=== PATIENT | female | born 1945 | race Caucasian/White ===

== ENCOUNTER 2017-02-07 10:54 | Day surgery (SDC) | payer MEDICARE, OTHER ==
[~2017-02-07] VITALS: Ht 167.6 cm; Wt 97.1 kg
--- NOTE | ~2017-02-07 | EGD ---
EGD REPORT [facility] [address] [place] [address] NAME: RONA ARREDONDO : [birth year] STATUS : REG [facility]#: [id number] AGE: 71 ADM/REG DATE : 02/07/17 MR#: [id number] REPORT SERV DATE: 02/07/17 DICTATED BY: DIRK CAMACHO DATE: 02/07/17 REPORT STATUS : Draft TRANSCRIBED BY: [facility] DATE: 02/07/17 Endoscopy Center Patient Name: Rona Arrednodo Date of : 1945 Attending MD: DIRK CAMACHO MD Procedure Date No Time: 02/07/2017 Procedure: Colonoscopy Indications: High risk colon cancer surveillance: Personal history of colonic polyps Referring MD: ISAEL ACUÑA Medicines: as per anesthesia Complications: No immediate complications. Procedure: Pre-Anesthesia Assessment: - ASA Grade Assessment: III - A patient with severe systemic disease. After I obtained informed consent, the scope was passed under direct vision. Throughout the procedure, the patient's blood pressure, pulse, and oxygen saturations were monitored continuously. The PCF [id number] was introduced through the anus and advanced to the cecum, identified by appendiceal orifice and ileocecal valve. The colonoscopy was somewhat difficult due to significant looping and a tortuous colon. The patient tolerated the procedure. The quality of the bowel preparation was fair. Findings: The perianal and digital rectal examinations were normal. Many small and large-mouthed diverticula were found in the sigmoid colon and in the descending colon. Internal hemorrhoids were found during endoscopy and were mild. Impression: - Diverticulosis in the sigmoid colon and in the descending colon. - Internal hemorrhoids. Recommendation: - Repeat colonoscopy in 5 years for surveillance. Procedure Code(s): --- Professional --- 76712, Colonoscopy, flexible, proximal to splenic flexure; diagnostic, with or without collection of specimen(s) by brushing or washing, with or without colon decompression (separate procedure) Diagnosis Code(s): --- Professional --- EGD REPORT [facility] [place]. [id number] NAME: RONA ARREDONDO : [birth year] STATUS : REG [facility]#: [id number] AGE: 71 ADM/REG DATE : 02/07/17 MR#: [id number] REPORT SERV DATE: 02/07/17 DICTATED BY: DIRK CAMACHO. DATE: 02/07/17 REPORT STATUS : Draft TRANSCRIBED BY: [employer] DATE: 02/07/17 K64.8, Other hemorrhoids K57.30, Diverticulosis of large intestine without perforation or abscess without bleeding Z86.010, Personal history of colonic polyps CPT copyright 2013 [employer]. All rights reserved. The codes documented in this report are preliminary and upon inspector glass or mirror review may be revised to meet current compliance requirements. DIRK CAMACHO MD 02/07/2017 1:20 PM This report has been signed electronically. Number of Addenda: 0 Note Initiated On: 02/07/2017 12:52 PM Scope Withdrawal Time 0 hours 6 minutes 43 seconds [address] [place] [id number]
[~2017-02-07 10:54] MED LIST: ATIVAN2 MG PO; FLECAINIDE100 MG PO; NEUR100 PO; NEXIUM20 M1 PO; SINGULAIR1 PO; SOMA; TAMBOCOR PO; TRAMADOL; TRAZ100 PO; TUMSROLL PO; VALTREX5 PO; VERELAN120 MG PO; XYZAL5 MG PO; ZOCOR10 PO; ZOCOR5 MG PO; ZOL100 PO
== END 2017-02-07 23:59 | disposition home or self-care (01) ==
LOC: DMU 10:54
PROVIDERS: Internal Medicine Gastroenterology
PROC: 0DJD8ZZ Inspection of Lower Intestinal Tract, Via Natural or Artificial Opening Endoscopic (ICD-10-PCS; principal; 2017-02-07 12:00)
DX: Z12.11 Encounter for screening for malignant neoplasm of colon (principal); K57.30 Diverticulosis of large intestine without perforation or abscess without bleeding; K64.8 Other hemorrhoids; I10 Essential (primary) hypertension; I47.1 Supraventricular tachycardia; G47.33 Obstructive sleep apnea (adult) (pediatric); J45.909 Unspecified asthma, uncomplicated; F41.9 Anxiety disorder, unspecified; Z99.81 Dependence on supplemental oxygen; Z86.010 Personal history of colon polyps; Z88.0 Allergy status to penicillin; Z88.2 Allergy status to sulfonamides; Z88.8 Allergy status to other drugs, medicaments and biological substances; Z90.710 Acquired absence of both cervix and uterus; Z90.89 Acquired absence of other organs; Z98.41 Cataract extraction status, right eye; Z98.42 Cataract extraction status, left eye; Z96.1 Presence of intraocular lens; Z98.890 Other specified postprocedural states; Z79.899 Other long term (current) drug therapy